=== PATIENT | female | born 1980 | race Caucasian/White ===

== ENCOUNTER 2016-11-09 05:35 | Inpatient (IN) | payer BC ==
[2016-11-09] MEDS ORDERED: ceFAZolin 2 GM/DEXTROSE 100 ML IV ONE (05:42)
[2016-11-09] MEDS ORDERED: IOPAMIDOL (ISOVUE-300) 100 ML BTL ONE (06:42)
[2016-11-09] MEDS ORDERED: ROCURONIUM 100 MG/10 ML VIAL ONE (06:54)
[2016-11-09] MEDS ORDERED: PROPOFOL 200 MG/20 ML VIAL ONE (06:55)
[2016-11-09] MEDS ORDERED: fentaNYL 100 MCG/2 ML INJ ONE ×2 (06:55→11:29)
[2016-11-09] MEDS ORDERED: PROPOFOL/EMULSION 500 MG/50 ML BOTTLE IV ONE ×2 (06:55→10:23)
[2016-11-09] MEDS ORDERED: REMIFENTANIL HCL 1 MG VIAL ONE ×2 (06:55→10:23)
[2016-11-09 06:56] LABS: CREATININE 0.7 mg/dL (0.6-1.0); GLOMERULAR FILTRATION RATE > 60
--- NOTE | 2016-11-09 07:08 | PDHPUP ---
History & Physical Update H&P update statement: This history and physical update is based on an assessment of the patient which was completed after admission or registration (within 24 hours), but prior to the surgery/procedure. H&P update: H&P reviewed & patient examined, no change in patient's condition since H&P completed
--- NOTE | 2016-11-09 07:10 | PDANEPAE ---
ANE History of Present Illness pituitary macroadenoma ANE Past Medical History - Cardiovascular History Hx Hypertension: No Hx Arrhythmias: No Hx Chest Pain: No Hx Coronary Artery / Peripheral Vascular Disease: No Hx CHF / Valvular Disease: No Hx Palpitations: No - Pulmonary History Hx COPD: No Hx Asthma/Reactive Airway Disease: Yes Hx Recent Upper Respiratory Infection: No Hx Oxygen in Use at Home: No Hx Sleep Apnea: No Sleep Apnea Screening Result - Last Documented: Negative Pulmonary History Comment: MILD ASTHMA - Neurologic History Hx Cerebrovascular Accident: No Hx Seizures: No Hx Dementia: No Neurologic History Comment: HX MIGRAINES - Endocrine History Hx Diabetes: No - Renal History Hx Renal Disorders: No - Liver History Hx Hepatic Disorders: No - Neurological & Psychiatric Hx Hx Neurological and Psychiatric Disorders: No - Cancer History Hx Cancer: No - Congenital Disorder History Hx Congenital Disorders: No - GI History Hx Gastrointestinal Disorders: No - Other Health History Other Health History: NEG - Chronic Pain History Chronic Pain: No - Surgical History Prior Surgeries: TUMOR R ARMPIT 2016. TUMOR L HEEL ANE Review of Systems Review of systems is: negative - Exercise capacity Exercise capacity: >=4 METS METS (RN): 4 METS ANE Patient History - Allergies Allergies/Adverse Reactions: No Known Allergies Allergy (Unverified 10/27/16 10:50) - Home Medications Home Medications: Gabapentin [Neurontin 300 MG (*)] 600 mg PO TID 10/27/16 [Last Taken Unknown] Herbals/Supplements -Info Only 1 ea PO DAILY 10/27/16 [Last Taken Unknown] Gering-3 Fatty Acids [Fish Oil 1000 mg (*)] 1,000 mg PO DAILY 10/27/16 [Last Taken Unknown] - NPO status NPO Status: no food or drink >8 hours NPO Since - Liquids (Date): 11/08/16 NPO Since - Liquids (Time): 23:00 NPO Since - Solids (Date): 11/08/16 NPO Since - Solids (Time): 18:00 - Anes Hx Anes Hx: no prior problems - Smoking Hx Smoking Status: Former smoker - Alcohol Use Alcohol Use: Occasionally (7/wk) - Family Anes Hx Family Anes Hx: none Family Hx Anesthesia Complications: NEG ANE Labs/Vital Signs - Labs Result Diagrams: 11/09/16 06:35 - Vital Signs Blood Pressure: 112/71 Heart Rate: 71 Respiratory Rate: 16 O2 Sat (%): 95 Height: 172.72 cm Weight: 58.06 kg ANE Physical Exam - Airway Neck exam: FROM Mallampati Score: Class 1 Mouth exam: normal dental/mouth exam - Pulmonary Pulmonary: no respiratory distress - Cardiovascular Cardiovascular: regular rate and rhythym - ASA Status ASA Status: II ANE Anesthesia Plan Anesthesia Plan: general endotracheal anesthesia Lines/Monitors: arterial line
[2016-11-09] MEDS ORDERED: MIDAZOLAM 2 MG/2 ML VIAL IVP ONE (07:13)
[2016-11-09] MEDS ORDERED: BACITRACIN ZINC 14.2 GM OINTTUBE TP ONE (07:15)
[2016-11-09] MEDS ORDERED: MANNITOL 20% 100 GM/500 ML BAG IV ONE (07:15)
[2016-11-09] MEDS ORDERED: THROMBIN (BOVINE) 5,000 UNIT VIAL TP ONE (07:15)
[2016-11-09] MEDS ORDERED: LIDO/EPI 1% **Not for Epidural 20 ML MDV ONE (07:16)
[2016-11-09] MEDS ORDERED: BACITRACIN 50,000 UNITS/10 ML SYR IRR ONE (07:16)
[2016-11-09] MEDS ORDERED: METHYLENE BLUE 0.5% 50 MG/10 ML AMP ONE (07:23)
[2016-11-09] MEDS ORDERED: PHENYLEPHRINE HCL 100 MCG/ML SYR ONE (08:06)
[2016-11-09] MEDS ORDERED: HYDROCORTISONE 100 MG/2 ML VIAL ONE (08:27)
[2016-11-09] MEDS ORDERED: LABETALOL HCL 5 MG/ML 20 ML MDV ONE (09:13)
[2016-11-09] MEDS ORDERED: ACETAMINOPHEN 325 MG TAB PO PRN (09:27)
[2016-11-09] MEDS ORDERED: POLYETHYLENE GLYCOL 3350 17 GM PKT PO PRN (09:27)
[2016-11-09] MEDS ORDERED: MAGNESIUM HYDROXIDE 30 ML UDCUP PO PRN (09:27)
[2016-11-09] MEDS ORDERED: diphenhydrAMINE 25 MG CAP PO PRN (09:27)
[2016-11-09] MEDS ORDERED: LACTULOSE 20 GM/30 ML UDCUP PO PRN (09:27)
[2016-11-09] MEDS ORDERED: HYDROCODONE/APAP 10/325 TAB PO PRN (09:27)
[2016-11-09] MEDS ORDERED: BISACODYL 10 MG SUPP PR PRN (09:27)
[2016-11-09] MEDS ORDERED: NS W/ 20 KCl/L 1,000 ML IV SCH (09:30)
--- NOTE | 2016-11-09 09:50 | POSTOPPROG ---
Post Op Note Date of Operation: 11/09/16 Surgeon: Mckenna [facility] Associate: Crissy Correa Anesthesia: GET(General Endotracheal) Pre-op Diagnosis: Prolactinoma Post-op Diagnosis: Same Procedure: Transphenoidal approach for resection of prolactinoma Inf/Abcess present in the surg proc area at time of surgery?: No Depth: Organ Space EBL: 50-100 Complications: None SOAP Progress Note Assessment/Plan: Assessment: Plan: 11/09/16 09:46 S: Patient in PACU. Stable. O: NAD, VSS CN II-XII grossly intact EOMI, PERRL No droop Nasal packing in place No evidence of CSF [id number] X4 A: 36 yo female sp Transphenoidal approach for resection of prolactinoma P: -Admit to ICU for closer urine output tracking -Monitor urine output q1 hour, if output greater than 250 X 2 hours or greater than 400 in 2 hours, order stat serum Na and urine spec grav and call PA -No sipping through a straw, no blowing nose -Encourage water when thirsty -Nasal packing to come out tomorrow -Head CT in am -Hydrocortisone taper, 50mg BID X 1, 25mg BID X 1 day, 25mg QD X 1 day then stop -Will follow up with Dr. Thomas, Dr. Correa and Dr. Contreras upon discharge in 2 weeks -Call with any change in neuro exam Objective: Vital Signs Temp Pulse Resp BP Pulse Ox 36.3 C 71 16 112/71 95 11/09/16 06:04 11/09/16 07:10 11/09/16 07:10 11/09/16 07:10 11/09/16 07:10 Laboratory Results 11/09/16 06:35
[2016-11-09] MEDS ORDERED: ALBUTEROL 3 ML DEYVIAL IH PRN (10:53)
[2016-11-09] MEDS ORDERED: MEPERIDINE 25 MG/ML SYR IVP PRN (10:53)
[2016-11-09] MEDS ORDERED: LABETALOL HCL 50 MG/10 ML SYR IVP PRN (10:53)
[2016-11-09] MEDS ORDERED: ONDANSETRON 4 MG/2 ML VIAL IVP PRN (10:53)
[2016-11-09] MEDS ORDERED: NALOXONE HCL 0.4 MG/ML INJ IVP PRN (10:53)
[2016-11-09] MEDS ORDERED: fentaNYL 100 MCG/2 ML INJ IVP PRN (10:53)
[2016-11-09] MEDS ORDERED: HYDROmorphONE/DILAUDID 1 MG/ML SYR IVP PRN ×2 (10:53)
[2016-11-09] MEDS ORDERED: PROMETHAZINE HCL 25 MG/ML INJ IVP PRN (10:53)
[2016-11-09] MEDS ORDERED: ONDANSETRON 4 MG/2 ML VIAL ONE ×2 (11:04→14:10)
[2016-11-09] MEDS: fentaNYL 100 MCG/2 ML INJ IVP PRN ×2 (11:32→11:40)
[2016-11-09] MEDS: HYDROmorphONE/DILAUDID 1 MG/ML SYR IVP PRN ×6 (12:21→21:52)
[2016-11-09] MEDS: HYDROCORTISONE 10 MG TAB PO SCH ×2 (12:30→21:19)
[2016-11-09] MEDS ORDERED: LR 1,000 ML IV ONE (13:13)
[2016-11-09] MEDS: ONDANSETRON 4 MG/2 ML VIAL IVP PRN ×2 (14:13→21:57)
[2016-11-09] MEDS: OXYCODONE/APAP 5/325 TAB PO PRN ×3 (15:04→23:01)
--- NOTE | 2016-11-09 15:20 | POSTANESTH ---
Post Anesthetic Evaluation Cardiovascular Status: Normal, Stable Respiratory Status: Normal, Stable Level of Consciousness/Mental Status: Can Participate in Eval Pain Control: Adequate, Prn Tx Ordered Nausea/Vomiting Control: Adequate, Prn Tx Ordered Complications Possibly Related to Anesthesia: None Noted
[2016-11-09] MEDS: GABAPENTIN 300 MG CAP PO SCH ×2 (16:16→21:19)
[2016-11-09] MEDS: SENNOSIDES/DOCUSATE SODIUM TAB PO SCH (21:21)
[2016-11-10] MEDS: OXYCODONE/APAP 5/325 TAB PO PRN ×5 (03:19→20:19)
[2016-11-10] MEDS: HYDROmorphONE/DILAUDID 1 MG/ML SYR IVP PRN ×7 (05:25→22:15)
[2016-11-10] MEDS: ONDANSETRON 4 MG/2 ML VIAL IVP PRN ×2 (05:37→12:33)
[2016-11-10 06:19] LABS: ANION GAP 11 mEq/L (8-16); CALCIUM 9.4 mg/dL (8.5-10.4); CARBON DIOXIDE 23 mEq/l (22-31); CHLORIDE 103 mEq/L (97-110); CREATININE 0.7 mg/dL (0.6-1.0); GLOMERULAR FILTRATION RATE > 60; GLUCOSE 169 mg/dL (70-100); POTASSIUM 4.3 mEq/L (3.5-5.2); SODIUM 137 mEq/L (134-144)
--- NOTE | 2016-11-10 08:43 | NEUSURGPN ---
Assessment/Plan: A: 36 yo female sp Transphenoidal approach for resection of prolactinoma P: -OK to transfer to floor. -Monitor urine output q1 hour, if output greater than 250 X 2 hours or greater than 400 in 2 hours, order stat serum Na and urine spec grav and call PA -No sipping through a straw, no blowing nose -Encourage water when thirsty -Nasal packing to come out today - to be removed by Dr. Correa -Head CT - completed this AM and to be reviewed by Dr. Contreras this AM. Report is pending. -Hydrocortisone taper, 50mg BID X 1, 25mg BID X 1 day, 25mg QD X 1 day then stop -Will follow up with Dr. Thomas, Dr. Correa and Dr. Contreras 2 weeks after discharge -Call with any change in neuro exam -D/w Dr Contreras Subjective: Pt resting in bed, states head is throbbing. Denies any salty taste in mouth. Had some drainage from L nostril overnight but has stopped. Just got up and worked with therapies. Objective: AAOx3 NAD VSS No droop EOMi MAEx4 Motor 5/5 BUE/BLE +LT Nasal packing in place Urinary Catheter in Place: No - Physician Discussed Patient with Dr.: Contreras Neurosurgery Physical Exam - Vitals, I&O, Labs I and O 11/09/16 11/10/16 11/11/16 05:59 05:59 05:59 Intake Total 2795 Output Total 2100 Balance 695 Weight 58.06 kg Intake: Oral (ml) 1370 IV Intake (ml) 1100 IV Infused (ml) 325 NS W/ 20 KCl/L 1,000 ml @ 325 100 mls/hr IV CONT DIONISIO Rx#:[id number] Output: Urine (ml) 1950 Toilet 1950 Emesis (ml) 150 Other: Intake Quantity Yes Sufficient Number of Voids Toilet 1 Vital Signs Temp Pulse Resp BP Pulse Ox 36.8 C 61 14 103/60 91 L 11/10/16 04:00 11/10/16 06:00 11/10/16 06:00 11/10/16 06:00 11/10/16 06:00 Laboratory Results 11/10/16 05:55 ICD10 Worksheet Patient Problems: Problems Problem Status Onset Prolactinoma Acute - ICD10 Problem Qualifiers (1) Prolactinoma
--- NOTE | 2016-11-10 09:15 | GOP ---
[f rep st] OPERATIVE REPORT DATE OF OPERATION: 11/09/2016 SURGEON: Angel Contreras MD PREOPERATIVE DIAGNOSIS: Pituitary microadenoma (prolactinoma). POSTOPERATIVE DIAGNOSIS: Pituitary microadenoma (prolactinoma). PROCEDURE PERFORMED: 1. Endoscopic transsphenoidal resection of pituitary microadenoma. 2. Stealth stereotactic navigation for volumetric gross total resection. FINDINGS: Successful pituitary tumor resection. SPECIMENS: Left pituitary microadenoma. ESTIMATED BLOOD LOSS: 20 cc. INDICATIONS: The patient is a 36-year-old woman with symptoms of headaches and galactorrhea. She was diagnosed with high prolactin several months ago, and MRI showed an 8 mm pituitary microadenoma to the left side of the gland. She was tried on both bromocriptine and cabergoline, but did not tolerate these medications due to side effects. Her sole inker, Dr. Thomas, sent her back over to see if we could consider surgery. She presents electively today for the surgery, which was done in conjunction with Dr. Correa from [facility]. DESCRIPTION OF PROCEDURE: After informed consent was obtained from the patient , the patient was brought to the operating room, and placed in a supine position on the operating table. A formal time-out was performed, identifying the patient by name, medical record number, and date of . Preoperative antibiotics were given. The endotracheal tube was placed and general endotracheal anesthesia was smoothly induced. The patient was given 50 mg of hydrocortisone for stress dosing of steroids. The face and nose were then prepped and draped in the normal sterile fashion. Dr. Correa began her portion of the procedure, which is dictated under a separate operative note. In brief, she gained access via both nares and performed a septoplasty due to some bony spurs of the nasal septum. On the right side, the middle turbinate and superior turbinate were resected, providing good access to the sphenoid sinus. The sphenoid ostia were opened, and wide bony opening of the sphenoid sinus was obtained. The stealth CT had been previously registered to the scalp using known surface landmarks. This was used to confirm our anatomic landmarks of the optic canals and carotid canals over the pituitary fossa. After we had access to the sphenoid sinus, I then used the Sonopet to remove the bone over the pituitary in the midline. Kerrison punches were used to widen this opening into the sella. At this point, the dura was opened sharply in a cruciate fashion, and immediately some softer tumor tissue was expressed. This was then taken for permanent pathology. Ring curettes were then used to reach into the sella and remove further soft tumor. Once this was completely removed, we had some small amount of bleeding from the cavernous sinus, which was controlled with Surgicel. We then, using the endoscope, we were able to look into the sella, and the normal gland was visualized well on the superior and right-sided aspects of the sella, and no further tumor tissue was visualized. At this point , this wound was copiously irrigated using bacitracin irrigation. A small piece of Surgicel was placed into the sella where the tumor cavity had been. This opening was then covered with DuraSeal, and the sphenoid sinus was packed with Gelfoam, which was held in place with further DuraSeal. At this point, Dr. Correa, then replaced the nasal septum into midline, and placed Merocel packs on both sides to hold the repair in place. There was no sign of any CSF leak. The patient was then awakened in the operating room, where she was extubated, and transferred to the PACU in stable condition. There were no operative complications. I was scrubbed and present for the entire procedure, and performed the procedure in conjunction with Dr. Correa. CO-SURGEON: Chapis Correa M.D., from [facility]NT. Her portion of the procedure is dictated under a separate operative note. FLUIDS AND URINE OUTPUT: Per the Anesthesia record. COUNTS: All sponge and needle counts were correct at the end the case. /[id number]/MODL MTDD
[2016-11-10] MEDS: HYDROCORTISONE 10 MG TAB PO SCH ×2 (09:32→20:18)
[2016-11-10] MEDS: SENNOSIDES/DOCUSATE SODIUM TAB PO SCH ×2 (09:32→20:19)
[2016-11-10] MEDS: GABAPENTIN 300 MG CAP PO SCH ×3 (09:33→22:15)
[2016-11-10] MEDS ORDERED: LORazepam 2 MG/ML INJ ONE (12:54)
[2016-11-10] MEDS ORDERED: LORazepam 2 MG/ML INJ IVP ONE (12:55)
--- NOTE | 2016-11-10 13:06 | SOAPPROG ---
SOAP Progress Note Assessment/Plan: Assessment: POD 1 TSS pituitary microadenoma. Doing well, packs pulled. Has instruction sheet for post op. Call with questions. RTC 2 weeks Plan: 11/10/16 13:05 Subjective: Doing well overall, c/o RAMIREZ. States she is having a panic attack. No sig nasal d/c. No salty or metallic taste. Objective: AFVSS RA packs in place, pulled without difficulty splints still in place B No sig bleeding or d/c. Vital Signs Temp Pulse Resp BP Pulse Ox 36.8 C 66 13 91/52 L 92 11/10/16 04:00 11/10/16 12:00 11/10/16 12:00 11/10/16 12:00 11/10/16 12:00 Laboratory Results 11/10/16 05:55 11/09/16 11/10/16 11/11/16 05:59 05:59 05:59 Intake Total 2795 500 Output Total 2100 1750 Balance 695 -1250 A ICD10 Worksheet Patient Problems: Problems Problem Status Onset Prolactinoma Acute
[2016-11-11] MEDS: OXYCODONE/APAP 5/325 TAB PO PRN ×3 (00:15→08:38)
[2016-11-11] MEDS: HYDROmorphONE/DILAUDID 1 MG/ML SYR IVP PRN ×3 (02:12→10:40)
[2016-11-11 02:20] VITALS: PULSE 72; RESP 16
[2016-11-11 08:05] VITALS: BP 114/81; TEMP 97.8; O2SAT 95
[2016-11-11] MEDS: SENNOSIDES/DOCUSATE SODIUM TAB PO SCH (08:26)
[2016-11-11] MEDS: GABAPENTIN 300 MG CAP PO SCH ×2 (08:26→16:34)
[2016-11-11] MEDS: IBUPROFEN 200 MG TAB PO PRN ×2 (08:27→14:27)
--- NOTE | 2016-11-11 09:09 | NEUSURGPN ---
Assessment/Plan: A: 36 yo female sp Transphenoidal approach for resection of prolactinoma - POD#2 P: -OK to transfer to floor. -Monitor urine output q1 hour, if output greater than 250 X 2 hours or greater than 400 in 2 hours, order stat serum Na and urine spec grav and call PA -No sipping through a straw, no blowing nose -Encourage water when thirsty -Nasal packing out -Head CT reviewed, expected post op changes -Hydrocortisone taper for home: 10mg BID for 2 more days. If any nausea/ dizziness after stopping steroids pt needs to call Dr. Thomas's office. -Will follow up with Dr. Thomas, Dr. Correa in 1 week, and Dr. Contreras 2 weeks after discharge -Call with any change in neuro exam -Pt seen by Dr. Contreras this am, also d/w Dr Contreras Subjective: Pt resting in bed, states her head is throbbing. Wishes to go home today. Objective: AAOx3 CN II - XII NAD VSS MAEx4 Motor 5/5 BUE/BLE No external nasal drainage Urinary Catheter in Place: No - Physician Discussed Patient with Dr.: Contreras Patient Seen by : Ben Neurosurgery Physical Exam - Vitals, I&O, Labs I and O 11/10/16 11/11/16 11/12/16 05:59 05:59 05:59 Intake Total 2795 5250 Output Total 2100 5700 Balance 695 -450 Weight 58.06 kg Intake: Oral (ml) 1370 5250 IV Intake (ml) 1100 IV Infused (ml) 325 NS W/ 20 KCl/L 1,000 ml @ 325 100 mls/hr IV CONT DIONISIO Rx#:[id number] Output: Urine (ml) 1950 5700 Toilet 1950 5700 Emesis (ml) 150 Other: Intake Quantity Yes Sufficient Number of Voids Toilet 1 Vital Signs Temp Pulse Resp BP Pulse Ox 36.6 C 72 16 114/81 H 95 11/11/16 08:00 11/11/16 02:00 11/11/16 08:00 11/11/16 08:00 11/11/16 08:00 Laboratory Results 11/10/16 05:55 ICD10 Worksheet Patient Problems: Problems Problem Status Onset Prolactinoma Acute - ICD10 Problem Qualifiers (1) Prolactinoma
[2016-11-11] MEDS: ONDANSETRON 4 MG/2 ML VIAL IVP PRN ×2 (09:10→15:01)
[2016-11-11] MEDS: oxyCODONE IR 5 MG TAB PO PRN ×2 (12:31→16:34)
[2016-11-12] MEDS ORDERED: ENOXAPARIN 40 MG/0.4 ML SYR SC SCH (09:00)
== END 2016-11-11 17:04 | disposition home or self-care (01) | DRG 615 ==
LOC: F2N 05:35
PROVIDERS: ADMIT Neurological Surgery; ATTEND Neurological Surgery
PROC: 0GB04ZX Excision of Pituitary Gland, Percutaneous Endoscopic Approach, Diagnostic (ICD-10-PCS; principal; 2016-11-09 07:15)
DX: D35.2 Benign neoplasm of pituitary gland (principal)
CPT/HCPCS: 97116-GP; 97162-GP; 97165-GO; 97535-GO; J0171; J0690; J1170; J2060; J2250; J2370; J2405; J2704; J3010; J3490; Q9967; Q9968